=== PATIENT | male | born 1950 | race Hispanic/Latino ===

== ENCOUNTER 2024-10-26 06:40 | Observation (INO) | payer OTHER ==
[2024-10-20 10:54] VITALS: BP 162/82; PULSE 70; RESP 18; TEMP 98.2
[2024-10-20 11:14] LABS: ALBUMIN 3.8 g/dL (3.5-5.0)
[2024-10-20 11:18] LABS: INR 0.98 (0.85-1.15); PROTHROMBIN TIME 10.4 SEC (9.6-11.6)
[2024-10-20 11:20] LABS: PARTIAL THROMBOPLASTIN TIME 27.9 SEC (26.3-35.5)
[~2024-10-26] VITALS: Ht 170.2 cm; Wt 101.6 kg
[2024-10-26] VITALS (30 sets, daily range): BP systolic 107–154; BP diastolic 57–92; PULSE 61–100; RESP 14–20; TEMP 97.7–99; O2SAT 96
[~2024-10-26 06:40] MED LIST: NAPR220T57 PO; centrum PO; collagen PO; turmeric PO
[2024-10-26] MEDS ORDERED: proPOFol 10 MG/ML 20ML VIAL IV ONE (07:45)
[2024-10-26] MEDS ORDERED: LIDOCAINE PF 100MG/5ML (2%) SYRINGE 5ML ONE (07:45)
[2024-10-26] MEDS ORDERED: rocuRONium bROMide 10MG/1ML 5ML VL ONE ×2 (07:45→09:53)
[2024-10-26] MEDS ORDERED: MIDAZOLAM HCL 1 MG/ML 2ML VIAL ONE (07:45)
[2024-10-26] MEDS ORDERED: FENTanyl CITRate PF 50 MCG/1 ML 2ML VIAL ONE ×2 (07:46→12:21)
[2024-10-26] MEDS ORDERED: ondanSETRON 4MG INJ ONE (07:47)
[2024-10-26] MEDS ORDERED: phenylEPHRINE HCL 10 MG/ML 1ML VIAL IV ONE (07:49)
[2024-10-26] MEDS ORDERED: GLYCOPYRROLATE 0.2 MG/ML 5 ML VIAL ONE (07:49)
[2024-10-26] MEDS ORDERED: NEOSTIGMINE METHYLSULFATE 1MG/ML IV ONE (07:49)
[2024-10-26] MEDS: ceFAZolin SODIUM 2 GM VIAL ONE (07:54)
[2024-10-26] MEDS: LACTATED RINGERS 1000ML 1,000 ML IV ONE (07:55)
[2024-10-26] MEDS ORDERED: ROPivacaine 0.5% 5MG/ML 30ML ONE (09:08)
[2024-10-26] MEDS ORDERED: DiphenhydrAMINE HCL 50 MG/ML VIAL IVP PRN (10:00)
[2024-10-26] MEDS ORDERED: PoTASSium chloRIDE 20MEQ ER 20 MEQ ERTAB PO PRN ×2 (10:00)
[2024-10-26] MEDS ORDERED: traMADol HCL 50 MG TABLET PO PRN (10:00)
[2024-10-26] MEDS ORDERED: CYCLOBENZAPRINE HCL 10 MG TABLET PO PRN (10:00)
[2024-10-26] MEDS ORDERED: HYDROcodone/APAP 5/325 1 TAB TABLET PO PRN ×3 (10:00→10:30)
[2024-10-26] MEDS ORDERED: ondanSETRON 4MG INJ IVP PRN ×2 (10:00)
[2024-10-26] MEDS ORDERED: FERROUS FUMARATE 324 MG TABLET PO PRN ×2 (10:00)
[2024-10-26] MEDS ORDERED: PoTASSium chl 10% ELIXIR 20MEQ 20 MEQ/15 ML UDCUP PO PRN ×2 (10:00)
[2024-10-26] MEDS ORDERED: CALCIUM CARB 500MG PO PRN ×2 (10:00)
[2024-10-26] MEDS ORDERED: 0.9%NACL 1000ML 1,000 ML IV SCH (10:00)
[2024-10-26] MEDS ORDERED: PoTASSium chloRIDE 20MEQ/100ML 100 ML IV PRN ×2 (10:00)
[2024-10-26] MEDS: TRANEXAMIC ACID 1000MG/10ML ONE (10:04)
[2024-10-26] MEDS: MEPERIDINE-PF 100 MG/ML SYG ONE (12:52)
[2024-10-26] MEDS: ketOROlac 15MG/ML VIAL (15MG/ML) IV SCH ×2 (13:51→22:21)
[2024-10-26] MEDS: ketOROlac 15MG/ML VIAL (15MG/ML) ONE (13:51)
[2024-10-26] MEDS: HYDROcodone/APAP 5/325 1 TAB TABLET ONE (14:21)
[2024-10-26] MEDS: GABApentin 100 MG CAPSULE PO SCH (14:23)
[2024-10-26] MEDS: GABApentin 100 MG CAPSULE ONE (14:25)
[2024-10-26] MEDS ORDERED: ceFAZolin SODIUM 2 GM VIAL IVPB SCH (15:00)
--- NOTE | 2024-10-26 15:12 | HMCIMG ---
Exam Type: HIP BILAT 2VW History: S/P HIP SURGERY; COMPARING RT vs LT Comparison: none Findings: There is status bilateral post hip replacement with adequate visualization and alignment of bony and hardware elements. No complications are seen. Bone density is preserved. No acute fractures or dislocations are seen. No blastic or lytic lesions or bones are identified. The soft tissues are unremarkable. Impression: No acute pathology.
--- NOTE | 2024-10-26 15:44 | HMCIMG ---
Fluoroscopic guidance History: ORIF RIGHT LYLE, SX Fluoroscopic guidance provided. Procedure by ordering physician in operating room suite with fluoroscopic guidance. Several spot images were obtained. Impression: Fluoroscopic guidance.
--- NOTE | 2024-10-26 15:56 | OP ---
Operative Note: DATE OF PROCEDURE: 10/26/24 SURGEON: NIEVES MILLER MD [employer] COORDINATOR: Rebecca Machado ANESTHESIA: General and fascia iliaca block ANESTHESIOLOGIST/COUNTER MOLDER: Abdulaziz Fong PREOPERATIVE DIAGNOSIS: Right hip osteoarthritis POSTOPERATIVE DIAGNOSIS: Right hip osteoarthritis PROCEDURE: Right total hip arthroplasty ESTIMATED BLOOD LOSS: 200 cc INDICATIONS: 74-year-old male with a right hip osteoarthritis failing conservative management. After discussion of the risks, benefits, and alternatives, the patient voluntarily agreed to undergo the aforementioned procedure. IMPLANTS: Muñoz and Nephew 56 mm R3 shell with 6.5 mm screws x 2, OR30 44/56 mm Oxinium dual mobility liner, anthology size eight standard offset stem with a 28 mm +0 Oxinium femoral head, and OR30 20/44 mm polyethylene dual mobility insert DESCRIPTION OF PROCEDURE: Patient was properly identified in the preoperative holding area. Surgical site marking was verified and surgery consent reviewed. The patient was then taken to the operating room and placed in supine position on the OR table. After induction of general anesthesia, preoperative antibiotics were given. The patient was then transitioned in the lateral decubitus position with the right side up. All bony prominences were well-padded. Right lower extremity was then prepped and draped in the usual sterile fashion. Surgical time out was done verifying correct surgery, side, site, and location to be performed. We then began the procedure by making approximately 15 cm long incision centered over the greater trochanter. Here we came sharply through skin down to the fascia. Hemostasis was then achieved using Bovie electrocautery. We then incised fascia in line with the skin incision and finger split the tensor muscle proximally. We then placed our Charnley retractor. At this point we identified the vastus ridge and began elevating the full-thickness soft tissue flap off of the vastus ridge, splitting the vastus lateralis and gluteus muscles as necessary. We then proceeded to externally rotate the femur while making this flap. We resected part of the anterior capsule. The femoral head and neck was then delivered into view. We then dislocated the hip and performed a femoral neck osteotomy approximately half fingerbreadth proximal lesser trochanter. We then placed our retractors around the superior and anterior portion of the acetabulum and began to remove the labrum circumferentially. We then began reaming the acetabulum where we reamed up to a size 55 ensuring appropriate anteversion and abduction. We then proceeded to trial with the size 55 acetabular component and this appeared to sit well. We opened our size 56 acetabular component and after irrigating out the wound malleted this into place. It appeared to have good press-fit however we elected to place 6.5 mm screws x2. We drilled and filled the screws in standard fashion in the posterior superior portion of the cup. We then placed the manhole cover on the center of the cup. The wound was thoroughly irrigated out further and we placed the acetabular liner and impacted this in place in standard fashion. We then proceeded to reposition our retractors to elevate the proximal femur out of the wound. We then used the box chisel and canal finder to began preparing the femoral side and sequentially broached up to the aforementioned size stem. Once we felt we had good fit, fill, and control of the femur with the stem in place we then used our trial head component and reduce the hip. Upon reduction, we had appropriate soft tissue tensioning, limb length and stable range of motion. We therefore dislocated the hip once more removed our trial components thoroughly irrigated the out the wound and placed our final components in standard fashion. The hip was then reduced with the final components in place. It was found to be stable through range of motion with appropriate soft tissue tensioning and appropriate limb length. At this point we placed a bump under the knee and the foot on the male with a stack of towels to allow for internal rotation. We repaired the abductors back to the greater trochanter using #5 Ethibond. We then repaired the rent in the vastus lateralis and gluteus muscles using #1 Vicryl in a running fashion. We removed our Charnley retractor and began to repair the IT band using #1 Vicryl in interrupted [id number] fashion. At this point we began to close her subcutaneous tissue using 2-0 Vicryl. Running 3-0 Monocryl in subcuticular fashion with Dermabond placed over this for the skin. Island barrier dressing was then applied. Patient was returned to supine position with abduction pillow placed, awakened from anesthesia, and taken to the recovery room in stable condition. NIEVES MILLER MD Oct 26, 2024 15:56
--- NOTE | 2024-10-26 15:58 | DS ---
Discharge Summary Hospital Course Summary: The patient was admitted to the hospital postoperatively on 10/26/2024 after undergoing right total hip arthroplasty. They did well with routine postoperative pain control. They worked well with physical therapy. They developed some acute blood loss anemia but remained asymptomatic. The hospital course was otherwise uncomplicated. They were subsequently able to be discharged on postoperative day 1 once discharge arrangements were made with home health physical therapy. Procedure(s): Right total hip arthroplasty, 10/26/2024 Assessment/Plan: ASSESSMENT: Status post right total hip arthroplasty Asymptomatic acute blood loss anemia PLAN: See discharge instructions Discharge Instructions: Begin working with home health physical therapy. Remembered do not flex the hip more than 90 and do not cross midline at the knees or ankles for the 1st six weeks. If you are side sleeper place a pillow between the knees and ankles to prevent the legs from crossing. Dressing may be removed 10/28/2024 and left open to air. Showers ok allowing soap and water to run over the wound. Pat dry. Do not submerge wound in tub/pool. Do not apply ointments. Do not apply Betadine. Do not apply peroxide. Ice packs to decrease pain/swelling. Prescriptions have been sent to the pharmacy: *B[place]lor 5/325mg 1-2 tab every 6 hours as needed for severe pain. (please call for refills) Cyclobenzaprine 5mg 1 tab every 8 hours as needed for muscle spasm pain. Gabapentin 100mg 1 tab every 8 hours (may discontinue if drowsy). Colace 100mg 1 tab orally twice a day as needed for constipation. Aspirin 325mg for 30 days to prevent blood clots. Call for a follow-up appointment in 2-3 weeks at [facility]. Home Medications: Active Scripts Hydrocodone/Acetaminophen (Hydrocodon-Acetaminophen 5-325) 5 Mg-325 Mg Tablet, 1-2 TAB PO Q4H PRN for SEVERE PAIN (7-10), #56 TAB 0 Refills Prov:NIEVES MILLER MD 10/27/24 Reported Medications [turmeric] No Conflict Check, 1 CAP PO DAILY 10/20/24 Naproxen Sodium (Aleve) 220 Mg Tablet, 660 MG PO AD PRN for PAIN, TAB 10/20/24 [collagen] No Conflict Check, 4 TBS PO AM 10/20/24 [centrum] No Conflict Check, 1 TAB PO AM 10/20/24 NIEVES MILLER MD Oct 26, 2024 15:58
[2024-10-26] MEDS: 0.9%NACL 1000ML 1,000 ML IV SCH (18:36)
[2024-10-26] MEDS: ceFAZolin SODIUM 2 GM VIAL IVPB SCH (18:37)
[2024-10-26] MEDS ORDERED: NAPROXEN SODIUM PO PRN (19:00)
[2024-10-26] MEDS: doCUSate SODIUM 100 MG CAP PO SCH (20:58)
[2024-10-27 04:55] VITALS: BP 113/65; PULSE 84; RESP 20; TEMP 98.5
[2024-10-27 05:54] LABS: HEMATOCRIT 40.5 % (42-54); MEAN CORPUSCULAR HGB CONC 34.6 g/dL (32.0-36.0); MEAN CORPUSCULAR VOLUME 92.7 fL (79-99); RED BLOOD CELL COUNT(AUTO) 4.37 MIL/uL (4.50-6.20); RED CELL DISTRIBUTION WIDTH 13.3 % (11.0-15.5); WHITE BLOOD COUNT (AUTO) 21.9 K/uL (4.8-10.8)
[2024-10-27 06:12] LABS: POTASSIUM 4.2 mmol/L (3.5-5.1)
[2024-10-27 08:13] VITALS: BP 135/67; PULSE 91; RESP 19; TEMP 99.2
[2024-10-27] MEDS: TURMERIC PO SCH (09:00)
[2024-10-27] MEDS: COLLAGEN PO SCH (09:00)
[2024-10-27] MEDS ORDERED: polyETHYLene GLYCol 3350 17 GM POWD.PACK PO SCH (09:00)
[2024-10-27] MEDS: ASPIRIN 325MG EC TAB PO SCH (09:12)
[2024-10-27] MEDS: MULTIVITAMIN TABLET PO SCH (09:13)
[2024-10-27] MEDS: polyETHYLene GLYCol 3350 17 GM POWD.PACK PO SCH (09:14)
[2024-10-27] MEDS: HYDROcodone/APAP 5/325 1 TAB TABLET PO PRN (09:16)
[2024-10-27] MEDS ORDERED: ketOROlac 15MG/ML VIAL (15MG/ML) IV PRN (10:00)
--- NOTE | 2024-10-27 11:00 | NUR ---
DCP CM MET WITH PT AND THIS MORNING, INITIAL ASSESSMENT DONE. PATIENT IS INDEPENDENT PRIOR TO SURGERY, LIVES AT HOME WITH HIS . 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 DENIES ANY OTHER EQUIPMENT/SERVICES. FEELS SAFE TO GO BACK HOME, STILL DRIVE, ABLE TO ASSIST WITH TRANSPORTATION AND NEEDS NECESSARY. DISCUSSED MD RECOMMENDATIONS FOR HOME W/HH, PT AGREEABLE, CONSENT SIGNED NICKY FOR [facility]. DCP TO [facility] ONCE APPROVED. CM TO CONTINUE TO FOLLOW UP. Addendum: 10/27/24 at 1543 by JOSE E ROLDAN LVN CM Amended: Links added.
[2024-10-27 12:23] VITALS: PULSE 88; RESP 19; TEMP 98.4
--- NOTE | 2024-10-27 14:50 | NUR ---
ORTHO COORDINATOR: TEACHING REGARDING DVT AND PNEUMONIA PREVENTION. PAIN EXPECTATIONS AND PAIN MANAGEMENT. PATIENT UP TO CHAIR. AT BEDSIDE. B SCD SLEEVES IN ROOM. SCD MACHINE IN ROOM. INCENTIVE SPIROMETER AT BEDSIDE. PATIENT RETURN DEMONSTRATED PROPER USE OF DEVICE. PATIENT RETURN DEMONSTRATED FOOT FLEXION AND EXTENSION EXERCISES. REVIEWED NUMERIC PAIN SCALE, REMINDED PATIENT PAIN MEDICATIONS MUST BE REQUESTED. INSTRUCTED TO PROVIDE PAIN LEVEL AND TYPE OF PAIN. PATIENT VERBALIZED UNDERSTANDING. PATIENT DENIES PAIN AT REST. REPORTS PAIN WHEN UTILIZING R LEG. REASSURED PAIN WAS NORMAL AND EXPECTED. REVIEWED MEDICATIONS FOR PAIN RATINGS 1-4, 5-7 AND 8 AND ABOVE. PATIENT REPORTS CURRENT PAIN AT 4. PATIENT REPORTS BEING UNABLE TO SLEEP IN BED. STATES HE DOES NOT SLEEP IN A BED AT HOME. ASKING WHEN HE CAN BE DISCHARGED. INSTRUCTED PATIENT WE WOULD NEED TO SECURE HOME HEALTH PRIOR TO DISCHARGING AND HE HAD AMBULATING GOALS TO MEET. FOR THE MATTRESS, WILL HAVE A WAFFLE OVERLAY PLACED. 1500 REPORT TO PRIMARY NURSE REGARDING PAIN LEVEL. 1505 WAFFLE MATTRESS APPLIED. PATIENT BACK TO BED, B SCD SLEEVES APPLIED, RIGHT SIDE NOT FUNCTIONING. REPLACED SCD MACHINE. BOTH ARE FUNCTIONING. NO ADDITIONAL QUESTIONS/CONCERNS AT THIS TIME.
[2024-10-27 15:37] VITALS: O2SAT 91
[2024-10-27 16:14] VITALS: BP 132/77; PULSE 76; RESP 19; TEMP 97.8
[2024-10-27] MEDS ORDERED: ASPI-891 PO (17:45)
[2024-10-27] MEDS ORDERED: GABA100C PO (17:45)
[2024-10-27] MEDS ORDERED: DOCU-116 PO (17:45)
[2024-10-27] MEDS ORDERED: CYCL-309 PO (17:45)
[2024-10-27] MEDS ORDERED: HYDR-4060 PO (17:45)
--- NOTE | 2024-10-27 18:08 | NUR ---
Discharge Paged public relations assistant nurse Andres with Called [facility] to give report on patient.
--- NOTE | 2024-10-27 18:43 | NUR ---
Report Report given to Andres Mata RN with [facility].
[2024-10-29] MEDS ORDERED: BisaCODYL 10 MG SUPP.RECT RC PRN ×2 (10:00)
== END 2024-10-27 18:30 | disposition home or self-care (01) ==
LOC: DAH 06:40 → DAHIP 06:41 → DAH 06:41 → 4AH 18:00
PROVIDERS: ADMIT Student in an Organized Health Care Education/Training Program; ATTEND Student in an Organized Health Care Education/Training Program
DX: M16.11 Unilateral primary osteoarthritis, right hip (principal); G89.18 Other acute postprocedural pain; D62 Acute posthemorrhagic anemia; M25.551 Pain in right hip; Z98.890 Other specified postprocedural states; Z79.899 Other long term (current) drug therapy; Z86.2 Personal history of diseases of the blood and blood-forming organs and certain disorders involving the immune mechanism
CPT/HCPCS: 82040; 85610; 85730; 84134; 86140; 36415 ×2; 87641; 73503; 64447; 27130; 96365; 96366 ×2; 96375; 73521; 97161; 97116 ×3; 97530 ×4; 96376; 80048; 85027; G0378 ×24; A4223 ×2; A4663; J7120; J3010 ×2; J3490 ×4; J2003; J2250; J2704; J2405; J2710; J2175; J2795; J1885 ×3; J2371; J0690 ×3; A4649 ×2; A4930; A6255; A4215; A4222; A4221; A4216; C1776